=== PATIENT | female | born 2000 ===

== ENCOUNTER 2022-10-12 15:03 | Outpatient (CLI) | payer BC ==
[~2022-10-12] VITALS: Ht 157.5 cm; Wt 80.9 kg
--- NOTE | 2022-10-12 15:10 | NUR ---
PATIENT AND SPOUSE AMBULATORY TO UNIT. PATIENT ORIENTED TO LABOR ROOM 5 AND ASSISTED INTO A GOWN. PATIENT COMPLAINT OF CONTRACTIONS EVERY 10-15 MINUTES, NO VAGINAL BLEEDING, AND SOME LEAKING FLUID THAT RULED OUT BEING AMNIOTIC FLUID. GOOD MOVEMENT NOTED. PATIENT EXPRESSES "I WAS [place] SO I WANTED MY CERVIX CHECKED BECAUSE WE LIVE SO [place] AND DON'T WANT TO DELIVER ON THE HIGHWAY"
[2022-10-12] MEDS ORDERED: PRENATAL (15:57)
[2022-10-12 16:11] VITALS: BP 135/82; PULSE 93; TEMP 98
== END 2022-10-12 16:45 | disposition home or self-care (01) ==
LOC: LDRO 15:03
DX: O62.4 Hypertonic, incoordinate, and prolonged uterine contractions (principal); Z3A.39 39 weeks gestation of pregnancy

== ENCOUNTER 2022-10-23 21:45 | Outpatient (CLI) | payer BC ==
[~2022-10-23] VITALS: Ht 157.5 cm; Wt 82.3 kg
[~2022-10-23 21:45] MED LIST: BENADRYL25 M2 PO; PRENATAL; TYLENOL 500MG500 MG PO
--- NOTE | 2022-10-23 21:50 | NUR ---
G1L0. 40.4. Ambulatory to LDR 4 with spouse and mother. Clean gown on. EFM and TOCO explained and applied. Pt states she saw yesterday and he checked her cervix and stripped her membranes. Pt reports having contractions since then but they have become "More painful." Pt reports some vaginal slotting this morning but has not had spotting or bleeding since then. Denies leaking of fluids. Reports good movement. Plan of care explained to pt and family who verbalize their understanding. 2199: SVE /-2, ballotable. 2235: Pt off monitor to ambulate in room/hallway. Birthing ball given per request.
[2022-10-23 22:30] VITALS: BP 124/85; PULSE 82; TEMP 98.4
[2022-10-23 22:36] VITALS: PULSE 91
--- NOTE | 2022-10-23 23:00 | NUR ---
SVE unchanged. FHR tracing maternal heart rate due to maternal position, EFM adjusted. 2320: FHR cat 1. Pt off monitors to ambulate in hallway.
--- NOTE | 2022-10-24 | NUR ---
SVE unchanged. Pt given the option to discharge home or stay an additional hour. Pt states "I just want to go home." 0003: called and updated on pts status. See physican notification. 0015: Discharge instructions given to pt and spouse who verbalize their understanding. Pt ambulatory off unit and home with spouse and mother.
[2022-10-24 00:06] VITALS: BP 127/90; PULSE 68
== END 2022-10-24 00:15 | disposition home or self-care (01) ==
LOC: LDRO 21:45
DX: O47.1 False labor at or after 37 completed weeks of gestation (principal); Z3A.40 40 weeks gestation of pregnancy

== ENCOUNTER 2022-10-24 23:29 | Inpatient (IN) | payer BC ==
[~2022-10-24] VITALS: Ht 157.5 cm; Wt 82.3 kg
[2022-10-24 00:50] VITALS: BP 134/86; PULSE 89; TEMP 98.7
--- NOTE | 2022-10-24 23:35 | NUR ---
To unit via wheelchair for assessment, accompanied by spouse and pt's mother. Pt tearful, sobbing. excited, doting. Pt out of wheelchair with coaching and assist. Changed into gown by staff and spouse. SVE 3+/100%. Family member reports "we were here last night and she had contractions all night. The contractions stopped @ 6am and we got a few naps." ePlan of care reviewed. Pt encouraged to slow breathing down,
[2022-10-24 23:42] VITALS: BP 134/86; PULSE 89; TEMP 98.1
[2022-10-25] VITALS (66 sets, daily range): BP systolic 94–1103; BP diastolic 55–95; PULSE 63–130; TEMP 97.8–102
--- NOTE | 2022-10-25 01:30 | NUR ---
Pt spouse asking about pain medications , "not epidural but in the IV" when explained that Fentanyl would be the medication used. Pt's spouse asks for more information about Fentanyl. Printed information provided. Questions invited and answered. Pt more relaxed. Discussed epidural vs IV and side effects/ risks for baby. Pts spouse with multiple questions about circumcisions, insurance coverage, etc. Explained to spouse that we as nurses know very little about insurances/coverages.Answered basic circumcision questions, and informed them that if they had more questions about circumcisions they should ask the circuits engineer prior to signing the consent. Pt relaxed between contractions, deep breathing through contractions.
[2022-10-25 01:39] LABS: BASO # 0.1 K/mm3 (0.0-0.2); BASO % 0.5 % (0.0-2.0); EOS % 0.1 % (0.0-4.0); GRAN # 12.8 K/mm3 (1.4-6.5); GRAN % 82.5 % (42.2-75.2); HEMOGLOBIN 12.1 g/dl (12.5-16.0); LYMPH # 1.2 K/mm3 (1.2-3.4); LYMPH % 7.9 % (20.0-51.0); MEAN CELL VOLUME 81 fl (80.0-100.0); MEAN CORPUSCULAR HEMOGLOBIN 27 pg (27-31); MEAN CORPUSCULAR HGB CONC 34 g/dl (33.0-37.0); MEAN PLATELET VOLUME 10.3 fl (7.4-10.4); MONO # 1.4 K/mm3 (0.1-0.6); MONO % 8.7 % (1.7-9.3); PLATELET COUNT 245 K/mm3 (130-400); RED BLOOD COUNT 4.42 M/mm3 (4.10-5.30); REDCELL DISTRIBUTION WIDTH-CV 15.4 % (11.5-14.5)
[2022-10-25 01:41] LABS: HEMATOCRIT 35.7 % (37.0-47.0)
--- NOTE | 2022-10-25 06:45 | NUR ---
RN AT BEDSIDE EDUCATING PT AND SPOUSE ABOUT DOCTOR'S ORDER FOR PITOCIN. EXPLAINED RISK AND BENEFITS OF PITOCIN. ALL QUESTIONS ANSWERED. PT REQUEST TIME TO THINK AND PRIVATELY DISCUSS WITH PARTNER BEFORE STARTING PITOCIN.
--- NOTE | 2022-10-25 07:00 | NUR ---
PT IS BEING INTERMITTENTLY MONTIORED PER POLICY, MONITORS ON FOR 20 MINS OF EVERY HOUR.
--- NOTE | 2022-10-25 08:00 | NUR ---
PT DECLINES SVE AT THIS TIME AND WISHES TO WAIT FOR DR. BLAKE.
--- NOTE | 2022-10-25 08:15 | NUR ---
DR. BLAKE AT BEDSIDE. SVE: /-2, AROM AT 0815, CLEAR FLUID NOTED. PITOCIN DISCUSSED, PT DESIRES TO WAIT A FEW HOURS AND SEE IF CONTRACTIONS PICKUP AFTER AROM. PLAN FOR PAIN CONTROL IS IV MEDS AT THIS TIME. ALL QUESTIONS ANSWERED AND PT IN AGREEMENT WITH PLAN OF CARE.
--- NOTE | 2022-10-25 10:44 | NUR ---
PT SITTING UPRIGHT ON THE EDGE OF THE BED FOR EPIDURAL PLACEMENT. MAID SUPERVISOR AT BEDSIDE. EFM AND TOCO TRACING INTERMITTENTLY DUE TO MATERNAL POSTIONING. PULSE OX APPLIED AND BLOOD PRESSURE CYCLING Q5 MINS. TEST DOSE AT 1044. VITALS WNL AT THIS TIME.
--- NOTE | 2022-10-25 12:20 | NUR ---
DR. BLAKE AT THE BEDSIDE TO CHECK ON PT. PLAN OF CARE REVIEWED, PT IN AGREEMENT WITH PLAN OF CARE.
--- NOTE | 2022-10-25 14:00 | NUR ---
SUBTLE LATE DECELS NOTED. PT PLACED RL AND THEN LL WITH PB. FLUID BOLUS ADMINISTERED.
--- NOTE | 2022-10-25 19:17 | NUR ---
Maternal temp 102.0 orally and 101.3 axillary. Pt feels hot to touch. 1921: called and updated on pt's status. See physican notification. New orders received. Pt throwing up and unable to take tylenol at this time. 1940: at bedside to assess pt. SVE unchanged. Discussion for at this time. Diagnosis of chorioamnionitis made. Questions answered by provider. 1955: Decision for made at this time. Pitocin shut off. Pt prepped for delivery. 2007: Pt no longer nauseous at this time. Tylenol administered. 2030: Pt to OR via bed. at bedside.
[2022-10-26] VITALS (8 sets, daily range): BP systolic 110–126; BP diastolic 53–83; PULSE 58–100; TEMP 98–98.3
[2022-10-26 05:37] LABS: HEMOGLOBIN 10.7 g/dl (12.5-16.0)
[2022-10-26 05:41] LABS: HEMATOCRIT 31.8 % (37.0-47.0)
--- NOTE | 2022-10-26 10:15 | NUR ---
Initial visit attempt; Physician with patient and . Food Counselor left card offering congratulations and God's blessings for the of their son. Also, information regarding the availability of spiritual care was on the card.
[2022-10-27 07:31] VITALS: BP 116/76; PULSE 62; TEMP 98
[2022-10-27] MEDS ORDERED: IBU600 MG PO (10:13)
[2022-10-27] MEDS ORDERED: ROXICODONE 55 MG/TAB PO (10:13)
[2022-10-27 17:24] VITALS: BP 112/64; PULSE 76; TEMP 98.1
[2022-10-27 20:19] VITALS: BP 107/66; PULSE 78; TEMP 98.1
--- NOTE | 2022-10-27 21:45 | NUR ---
MOM INSTRUCTED ON DISCHARGE TEACHING- UNDERSTANDING VOICED- MOM DENIES QUESTION AND CONCERNS AT THIS TIME. MOM BABY AND ARE ESCORTED OFF THE UNIT BY [employer]GER [employer]
== END 2022-10-27 22:00 | disposition home or self-care (01) | DRG 786 ==
LOC: LDRO 23:29 → LDR 10-25 00:10 → OB 10-25 00:10
PROVIDERS: ADMIT Obstetrics & Gynecology
PROC: 10D00Z1 Extraction of Products of Conception, Low, Open Approach (ICD-10-PCS; principal; 2022-10-25)
DX: O76 Abnormality in fetal heart rate and rhythm complicating labor and delivery (principal); O41.1230 Chorioamnionitis, third trimester, not applicable or unspecified; O48.0 Post-term pregnancy; Z3A.40 40 weeks gestation of pregnancy; Z37.0 Single live birth; O77.0 Labor and delivery complicated by meconium in amniotic fluid; J30.2 Other seasonal allergic rhinitis; O99.52 Diseases of the respiratory system complicating childbirth; Z90.89 Acquired absence of other organs
CPT/HCPCS: OP; J0171; J0290; J1100; J1580; J1885; J2401; J2405; J2590; J3010; J7120